=== PATIENT | male | born 1995 | race Caucasian/White ===

== ENCOUNTER 2021-03-16 02:48 | Emergency (ER) | payer SELFPAY ==
[~2021-03-16] VITALS: Ht 165.1 cm; Wt 86.6 kg
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
[2021-03-16] MEDS ORDERED: DIPH,PERTUSS(ACELL),TET VAC/PF 0.5 ML SYRINGE. VAX IM ONE ×2 (03:01→04:30)
[2021-03-16] MEDS ORDERED: CONTRAST GIVEN. MC PRN (03:15)
[2021-03-16 03:26] LABS: BASO # 0.1 x10^3/uL (0.0-0.2); BASO % 1 % (0-3); EOS # 0.2 x10^3/uL (0.0-0.7); EOS % 2 % (0-3); HEMATOCRIT 40.5 % (39.0-53.0); HEMOGLOBIN 13.3 g/dL (13.0-17.5); LYMPH % 19 % (24-48); MEAN CORPUSCULAR HEMOGLOBIN 29 pg (25-35); MEAN CORPUSCULAR HGB CONC 33 g/dL (31-37); MEAN CORPUSCULAR VOLUME 87 fL (79-100); MONO # 0.5 x10^3/uL (0.0-1.1); MONO % 5 % (0-9); NEUT # 7.3 x10^3uL (1.8-7.7); NEUT % 73 % (31-73); PLATELET COUNT 259 x10^3/uL (140-400); RED BLOOD COUNT 4.66 x10^6/uL (4.30-5.70); RED CELL DISTRIBUTION WIDTH 13.6 % (11.5-14.5); WHITE BLOOD COUNT 10.1 x10^3/uL (4.0-11.0)
[2021-03-16] MEDS ORDERED: IOHEXOL 300 MG/ML 75 ML VIAL. IV ONE (03:30)
[2021-03-16] MEDS ORDERED: LIDOCAINE 2% 20 ML VIAL. IJ ONE (03:30)
[2021-03-16] MEDS ORDERED: IV RINGERS SOLUTION,LACTATED 1,000 ML IV SCH (03:30)
[2021-03-16 03:36] LABS: CALCIUM 8.1 mg/dL (8.5-10.1); CREATININE 1.6 mg/dL (0.7-1.3); GFR 52.1; POTASSIUM 3.7 mmol/L (3.5-5.1)
[2021-03-16 03:42] LABS: ALBUMIN 3.1 g/dL (3.4-5.0); DIRECT BILIRUBIN 0.1 mg/dL (0.0-0.2); MAGNESIUM 1.8 mg/dL (1.8-2.4); TOTAL BILIRUBIN 0.4 mg/dL (0.2-1.0); TOTAL PROTEIN 5.7 g/dL (6.4-8.2)
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
[2021-03-16] MEDS ORDERED: IV NORMAL SALINE 1,000ML 1,000 ML IV ONE (04:30)
[2021-03-16] MEDS ORDERED: ONDANSETRON PF 4 MG/2 ML VIAL. ONE (04:31)
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
[2021-03-16] MEDS ORDERED: ONDANSETRON PF 4 MG/2 ML VIAL. IVP ONE (05:00)
--- NOTE | 2021-03-16 05:10 | EKG ---
[address] [address] Test Date: 2021-03-16 Test Time: 05:02:44 Pat Name: Trent Fermin Department: Room: Gender: M Machine Milker: : 1995 Requested By: ROBIN YOUNG Order Number: [id number] Reading MD: Measurements Intervals [place] Rate: 82 P: 63 TX: 152 QRS: 87 QRSD: 66 T: 65 QT: 386 QTc: 454 Interpretive Statements SINUS RHYTHM OTHERWISE NORMAL ECG RI6.02 No previous ECG available for comparison
[2021-03-16 05:52] LABS: BASO # 0.1 x10^3/uL (0.0-0.2); BASO % 0 % (0-3); EOS % 0 % (0-3); HEMATOCRIT 35.8 % (39.0-53.0); HEMOGLOBIN 11.7 g/dL (13.0-17.5); LYMPH # 1.5 x10^3/uL (1.0-4.8); LYMPH % 7 % (24-48); MEAN CORPUSCULAR HEMOGLOBIN 28 pg (25-35); MEAN CORPUSCULAR HGB CONC 33 g/dL (31-37); MEAN CORPUSCULAR VOLUME 86 fL (79-100); MONO # 0.9 x10^3/uL (0.0-1.1); MONO % 4 % (0-9); NEUT # 18.4 x10^3uL (1.8-7.7); NEUT % 88 % (31-73); PLATELET COUNT 210 x10^3/uL (140-400); RED BLOOD COUNT 4.18 x10^6/uL (4.30-5.70); RED CELL DISTRIBUTION WIDTH 13.2 % (11.5-14.5); WHITE BLOOD COUNT 20.9 x10^3/uL (4.0-11.0)
[2021-03-16] MEDS ORDERED: CEPH750C9 PO (06:10)
[2021-03-16 06:11] LABS: % BANDS 7 % (0-9); % LYMPHS 5 % (24-48); % MONOS 4 % (0-10); % MYELOS 1 % (0-0); % SEGS 83 % (35-66)
[2021-03-16 06:12] LABS: PLT ESTIMATE ADEQUATE (ADEQUATE)
[2021-03-16] MEDS ORDERED: IV NORMAL SALINE 50ML 50 ML ONE (06:29)
[2021-03-16] MEDS ORDERED: cefTRIAXone SODIUM 1 GM VIAL ONE (06:29)
[2021-03-16 06:55] VITALS: BP 129/72
[2021-03-16] MEDS ORDERED: cefTRIAXone IM 1 GM VIAL IM ONE (07:00)
== END 2021-03-16 07:47 | disposition home or self-care (01) ==
LOC: EDBD 02:48 → ER 02:48
DX: S51.012A Laceration without foreign body of left elbow, initial encounter (principal); S30.1XXA Contusion of abdominal wall, initial encounter; S00.93XA Contusion of unspecified part of head, initial encounter; V19.9XXA Pedal cyclist (driver) (passenger) injured in unspecified traffic accident, initial encounter; Y93.I9 Activity, other involving external motion; Y92.89 Other specified places as the place of occurrence of the external cause; Y99.8 Other external cause status
CPT/HCPCS: 12004; 36415; 70450; 71045; 71260; 72125; 73080; 74177; 80048; 80076; 82150; 82550; 83735; 84484; 85007; 85025; 85610; 85730; 86850; 86900; 86901; 90471; 90715; 93005; 96361; 96365; 96375; 96376; 99285; G0480; J0696; J2001; J2405; J3010; J7030; J7120; Q9967